=== PATIENT | female | born 1985 | race Two or more races ===

== ENCOUNTER 2019-01-25 19:31 | Emergency (ER) | payer SELFPAY ==
[~2019-01-25] VITALS: Ht 162.6 cm; Wt 66.0 kg
[2019-01-25 19:38] VITALS: BP 110/79
== END 2019-01-26 00:15 | disposition left against medical advice (07) ==
LOC: ER 19:31
DX: Z53.21 Procedure and treatment not carried out due to patient leaving prior to being seen by health care provider (principal); R10.84 Generalized abdominal pain; F31.9 Bipolar disorder, unspecified; F17.200 Nicotine dependence, unspecified, uncomplicated
CPT/HCPCS: 99283